=== PATIENT | female | born 1990 | race Caucasian/White ===

== ENCOUNTER 2019-06-22 14:48 | Emergency (ER) | payer OTHER ==
[2019-06-22] MEDS ORDERED: fentaNYL* 50 MCG/ML 2 ML VIAL (100 MCG VIAL) IV SLOW PU ONE ×2 (15:10→17:02)
[2019-06-22] MEDS ORDERED: KETAMINE HCL* 50 MG/ML 10 ML VIAL IV ONE (16:43)
--- NOTE | 2019-06-22 16:59 | ED ---
ED Sedation - Procedural Sedation/Analgesia Sedation Course: RT Present, Emergency Airway Equipment Available, Informed Consent Obtained, Time Out Completed, End-tidal Capnography Utilized Adverse Reactions Experienced by Patient: None Mallampati Classification: Class I ASA Classification: Class I: Normal/Healthy Diagnosis: Elbow dislocation Pre-Procedural Heart: S1 and S2 Pre-Procedural Lungs: Clear Auscultation Comment/Plan of Care: Sedation for elbow dislocation procedure. No contraindications. Provider Procedure Attestation: With My Signature Below, I Attest to have Personally Reviewed and Agree with the Pre-Sedation History and Pre-Service Assessment Update Cleared for Moderate Sedation: Yes Pre-Procedural Diagnosis: Elbow dislocation Post-Procedural Diagnosis: Elbow dislocation Procedure: Given ketamine 50 mgs Estimated Blood Loss: None Specimen(s): None Findings: None Implants/Tubes/Drains Placed: None
--- NOTE | 2019-06-22 17:44 | ED ---
Upper Extremity Pain - HPI Summary HPI Summary: Patient is a 29-year-old otherwise healthy female presenting to the ED with left elbow pain. She states she fell off a horse just prior to arrival and fell directly onto the left arm. She believes she may also have hit her head, however she was wearing a helmet. She is currently denying any headache, head pain, confusion, visual changes, memory loss, lightheadedness. She is endorsing pain mainly over the left elbow with obvious deformity with radiation of pain to the forearm and upper arm. She believes she is unable to move the arm additionally at the shoulder joint. She denies any left sided pain otherwise. Ambulating well. Denies any back pain, chest pain, denies shortness of breath. - History of Current Complaint Chief Complaint: EDExtremityUpper Stated Complaint: POSS LEFT ARM FRACTURE PER PT Time Seen by Provider: 06/22/19 15:02 Hx Obtained From: Patient Onset/Duration: Started Minutes Ago Timing: Constant Severity Initially: Severe Severity Currently: Severe Pain Location: Elbow Character: Aching Aggravating Factor(s): Lifting, Flexion, Extension Alleviating Factor(s): Nothing Associated Signs & Symptoms: Positive: Negative - Allergies/Home Medications Allergies/Adverse Reactions: Allergies Allergy/AdvReac Type Severity Reaction Status Date / Time No Known Allergies Allergy Verified 05/06/16 19:49 Home Medications: Home Medications ALPRAZolam [Xanax] 0.5 mg PO QPM 06/22/19 [History Confirmed 06/22/19] Fluoxetine (Nf) Cap [Fluoxetine HCl] 40 mg PO DAILY 06/22/19 [History Confirmed 06/22/19] QUEtiapine TAB* [Seroquel 25 MG TAB*] 25 mg PO QPM 06/22/19 [History Confirmed 06/22/19] PMH/Surg Hx/FS Hx/Imm Hx Previously Healthy: Yes Endocrine/Hematology History: Denies: Hx Diabetes Psychiatric History: Reports: Hx Bipolar Disorder - Immunization History Hx Pertussis Vaccination: No Immunizations Up to Date: Yes Infectious Disease History: No Infectious Disease History: Denies: Traveled Outside the [place] in Last 30 Days - Family History Known Family History: Positive: Hypertension - Social History Occupation: Employed Full-time Lives: With Family Alcohol Use: Occasionally Hx Substance Use: No Substance Use Type: Reports: None Hx Tobacco Use: Yes Smoking Status (MU): Former Smoker Review of Systems Negative: Fever, Chills, Skin Diaphoresis Negative: Palpitations, Chest Pain Negative: Shortness Of Breath, Cough Positive: Arthralgia - left elbow pain radiating to the upper and lower arm Skin: Negative Negative: Weakness, Paresthesia, Numbness All Other Systems Reviewed And Are Negative: Yes Physical Exam Triage Information Reviewed: Yes Vital Signs On Initial Exam: Initial Vitals Temp Pulse Resp BP Pulse Ox 97.8 F 115 18 140/96 97 06/22/19 14:48 06/22/19 14:48 06/22/19 14:48 06/22/19 14:48 06/22/19 14:48 Vital Signs Reviewed: Yes Appearance: Positive: Well-Appearing, Well-Nourished Skin: Positive: Warm, Skin Color Reflects Adequate Perfusion Head/Face: Positive: Normal Head/Face Inspection Eyes: Positive: EOMI, Conjunctiva Clear Neck: Positive: Supple, No Lymphadenopathy Respiratory/Lung Sounds: Positive: Clear to Auscultation, Breath Sounds Present Cardiovascular: Positive: Pulses are Symmetrical in both Upper and Lower Extremities Musculoskeletal: Positive: Pain @ - left elbow pain Neurological: Positive: Sensory/Motor Intact, Alert, Oriented to Person Place, Time, Speech Normal Psychiatric: Positive: Affect/Mood Appropriate Procedures - Sedation Patient Received Moderate/Deep Sedation with Procedure: Yes Are You The Provider Who Administered The Sedation: [place] of Provider Whom Sedated Patient[facility] [place] [facility] - Vital Signs Vital Signs Temp Pulse Resp BP Pulse Ox 06/22/19 15:22 16 06/22/19 14:48 97.8 F 115 18 140/96 97 - Laboratory Lab Statement: Any lab studies that have been ordered have been reviewed, and results considered in the medical decision making process. Course/Dx - Course Course Of Treatment: Patient is in acute distress on arrival due to pain. She states she is only having pain to her left arm and denies pain otherwise. She is alert and oriented, pain is rated at 10/10. Believe she may have hit her head, but she was wearing a helmet. No neuro symptoms on exam. X-ray shows a dislocation joint effusion. Suspected fractures of the radial head and capitulum. Procedural sedation done by Dr. Marcum. Reduction made by ALFA Lua. Pt tolerated well. Will be dc;d wth fracture and dislocation. Follow up with ortho in 2 days. Sling applied. NV intact. - Diagnoses Differential Diagnosis/HQI/PQRI: Positive: Fracture (Closed) Provider Diagnoses: Elbow dislocation, Radial head fracture Discharge ED - Sign-Out/Discharge Documenting (check all that apply): Patient Departure - Discharge Plan Condition: Stable Disposition: HOME Prescriptions: HydroCODONE/Acetamin 10/325 NF [[place] 10/325 (NF)] 1 tab PO Q6H #8 tab MDD 4 Patient Education Materials: Elbow Dislocation (ED), Procedural Sedation (ED) Referrals: Jackson Judge MD [Medical Doctor] - Mykel Bland MD [Primary Care Provider] - Additional Instructions: Keep the arm in a sling Please follow up with orthopedics Keep the sling on until ortho follow up - Billing Disposition and Condition Condition: STABLE Disposition: Home - Attestation Statements Provider Attestation: I have seen the patient with the ANGIE and agree with the plan and documentation below except as noted: 29-year-old female w elbow fracture dislocation. Reduced successfully. Lizeth Melton MD
[2019-06-22] MEDS ORDERED: oxyCODONE/Acetamin 5/325 MG* TAB PO ONE (18:28)
[2019-06-22 18:57] VITALS: BP 131/80
== END 2019-06-22 18:56 | disposition home or self-care (01) ==
LOC: ED 14:48
DX: S42.202A Unspecified fracture of upper end of left humerus, initial encounter for closed fracture (principal); S53.125A Posterior dislocation of left ulnohumeral joint, initial encounter; M25.422 Effusion, left elbow; V80.010A Animal-rider injured by fall from or being thrown from horse in noncollision accident, initial encounter; Y93.52 Activity, horseback riding; Y92.9 Unspecified place or not applicable; F31.9 Bipolar disorder, unspecified; Z87.891 Personal history of nicotine dependence
CPT/HCPCS: 24600; 96374; 99156; 99283; A9270-GY; J3010

== ENCOUNTER 2019-06-29 11:12 | Day surgery (SDC) | payer OTHER ==
--- NOTE | 2019-06-24 13:33 | HP ---
PREOPERATIVE HISTORY AND PHYSICAL: DATE OF ADMISSION/SURGERY: 06/29/19 [facility] DATE OF OFFICE VISIT/ENCOUNTER: 06/23/19 ATTENDING SURGEON: Elvira Stone MD.* (DICTATED BY ALFA FRANK) PROCEDURE: Open reduction internal fixation, left elbow medial epicondyle; possible lateral ligament repair. HISTORY OF PRESENT ILLNESS: This is a 29-year-old female who injured her left elbow when she was thrown from a horse. 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 She was seen at [facility] Emergency Room. X-rays showed a complete posterior dislocation of the elbow with a medial epicondyle fracture. The dislocation was reduced and she was referred to Dr. Stone for further evaluation and treatment considerations. After review of x-rays and examination of the patient, Dr. Stone is recommending surgical intervention for best outcome. The patient has consented to proceed. PAST MEDICAL HISTORY: 1. Depression/anxiety. 2. Type 2 bipolar disorder. PAST SURGICAL HISTORY: None. CURRENT MEDICATIONS: 1. Alprazolam 1 mg daily. 2. Calcium/magnesium citrate daily. 3. Cod liver oil 2 daily. 4. Divalproex sodium ER 500 mg daily. 5. Drospirenone/ethinyl estradiol 3/0.02 mg. 6. Fluoxetine HCl 20 mg daily. 7. Quetiapine fumarate 25 mg daily. 8. Women's Multivitamin daily. ALLERGIES: No known drug allergies. FAMILY MEDICAL HISTORY: Noncontributory. 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 She is a former smoker. She quit 2 months ago. Prior to that, she smoked 4 to 5 cigarettes a day off and on. She denies recreational drug use. She drinks alcohol on occasion. REVIEW OF SYSTEMS: Negative for general, cephalic, cardiovascular, respiratory , GI, , other musculoskeletal, integumentary, endocrine, neurologic, and hematologic symptoms. Infectious Disease: Negative for MRSA, hepatitis C, HIV. PHYSICAL EXAMINATION GENERAL: A well-developed, well-nourished 29-year-old female, in no acute distress. VITAL SIGNS: Height 5 feet 2 inches, weight 145 pounds. Blood pressure 121/82. HEENT: Normocephalic, atraumatic. Pupils are equal, round, and reactive to light and accommodation. Extraocular movements are intact. Throat is clear. NECK: Supple. No palpable lymph nodes. PULMONARY: Lungs are clear to auscultation bilaterally. No wheezes, rales, or rhonchi. CARDIOVASCULAR: Regular rate and rhythm. S1, S2. No murmurs, rubs, or gallops. No edema. ABDOMEN: Positive bowel sounds. Soft, nontender. NEUROLOGICAL: Alert and oriented x3. Cranial nerves II through XII are intact. Sensation is intact to light touch. MUSCULOSKELETAL: On exam of her left elbow, she has medial and lateral tenderness. There is a lot of swelling. Any motion is painful. She has good motion in her fingers and her wrist. Neurovascular function is intact. Skin is intact. IMAGING STUDIES: X-rays, AP, lateral, and oblique of the left elbow pre and post reduction show a posterior dislocation, which was concentrically reduced, but has a displaced medial epicondyle fracture. IMPRESSION: Left elbow posterior dislocation with medial epicondyle fracture and possible lateral instability as well. PLAN: The patient is scheduled to undergo an open reduction internal fixation of the left medial epicondyle and possible lateral ligament repair with Dr. Stone on 06/29/19. She will return to the office 10 days postop for followup and suture removal. She has a prescription for hydrocodone that was given to her at the emergency room. She will plan on filling that later today, and we will refill that if needed postoperatively. ALFA FRANK [id number]/[facility] #: [id number] CECI
[~2019-06-29 11:12] MED LIST: Acetaminophen TAB* 325 MG ONE; Acetaminophen TAB* 325 MG PO ONE; Buffered Lidocaine 1% SYRIN* 1 ML/SYRINGE INTRADERM ONE; Bupivacaine 0.5% SDV PF* 30ML VIAL ONE; Famotidine IV* 10 MG/ML 2 ML (20 mg) IV ONE; Famotidine IV* 10 MG/ML 2 ML (20 mg) ONE; Gabapentin CAP(*) 300 MG ONE; Gabapentin CAP(*) 300 MG PO ONE; Lactated Ringers 1000 ML Bag* 1,000 ML IV SCH
[2019-06-29] MEDS ORDERED: ceFAZolin 2 GM PREMIX in ORs 2 GM/50 ML BAG ONE (11:21)
[2019-06-29] MEDS ORDERED: fentaNYL* 50 MCG/ML 2 ML VIAL (100 MCG VIAL) ONE ×3 (12:35→14:55)
[2019-06-29] MEDS ORDERED: Midazolam* 1 MG/ML 2 ML VIAL (2 MG) ONE (12:35)
[2019-06-29] MEDS ORDERED: Bupivacaine 0.5% SDV PF* 30ML VIAL ONE (12:50)
[2019-06-29] MEDS ORDERED: Lidocaine 2% PF * 5 ML VIAL ONE (13:11)
[2019-06-29] MEDS ORDERED: Dexamethasone IV* 4 MG/ML 1 ML (4 MG) ONE (13:12)
[2019-06-29] MEDS ORDERED: Ketorolac INJ* 30 MG/ML 1 ML VIAL ONE (13:12)
[2019-06-29] MEDS ORDERED: Propofol* 10 MG/ML 20 ML BTL ONE ×2 (13:12→13:22)
[2019-06-29] MEDS ORDERED: Ondansetron INJ* 2 MG/ML VIAL ONE (13:12)
[2019-06-29] MEDS ORDERED: Ondansetron INJ* 2 MG/ML VIAL IV PRN (13:29)
[2019-06-29] MEDS ORDERED: Levalbuterol 0.63MG/3ML NEB* UNIT OF USE INH PRN (13:29)
[2019-06-29] MEDS ORDERED: diPHENhydraMINE IV* 50 MG/ML 1 ml VIAL (BENADRYL) IV PRN (13:29)
[2019-06-29] MEDS ORDERED: Naloxone* 0.4 MG/ML 1 ML VIAL IV PRN (13:29)
[2019-06-29] MEDS ORDERED: DiMENhydriNATE IV* 50 MG/ML VIAL IV PUSH PRN (13:29)
[2019-06-29] MEDS ORDERED: Scopolamine 1.5 mg* PATCH TRANSDERM PRN (13:29)
[2019-06-29] MEDS ORDERED: HYDROcodone/ACETAMIN 5-325 MG* 1 TAB PO PRN ×2 (13:29)
[2019-06-29] MEDS ORDERED: HYDROcodone/ACETAMIN 5-325 MG* 1 TAB ONE (14:47)
[2019-06-29] MEDS: fentaNYL* 50 MCG/ML 2 ML VIAL (100 MCG VIAL) IV PRN ×2 (14:57→15:06)
[2019-06-29 16:04] VITALS: BP 138/73
--- NOTE | 2019-06-29 23:27 | OP ---
DATE OF OPERATION: 06/29/19 - [facility] DATE OF : [birth year] SURGEON: Elvira Stone MD PROFESSIONAL SHOPPER: ALFA Medina ANESTHESIA: General. PRE-OP DIAGNOSIS: Medial epicondyle fracture of the left elbow, status post dislocation. POST-OP DIAGNOSIS: Medial epicondyle fracture of the left elbow, status post dislocation. OPERATIVE PROCEDURE: Open reduction and internal fixation of the left medial epicondyle. ESTIMATED BLOOD LOSS: Zero. TOURNIQUET TIME: About 45 minutes. INDICATIONS FOR PROCEDURE: Miguelina is a 29-year-old female who fell off a horse and suffered dislocation of her left elbow. She has a fracture of her medial epicondyle, which is markedly displaced. The elbow joint was reduced and has been stable, but she presents now for ORIF of the medial epicondyle. DESCRIPTION OF PROCEDURE: The patient was brought to the operating room, was given a general anesthetic and placed in the supine position on the operating table with a tourniquet around her left upper arm. The skin of her left upper extremity was prepped and draped in the usual sterile fashion. The upper extremity was exsanguinated and the tourniquet elevated to 250 mmHg. A medial curvilinear incision was made centered over the medial epicondyle. The fracture fragment was found significantly displaced from the medial aspect of the humerus. The hematoma was removed and the elbow joint was irrigated with saline. It was placed through a range of motion and was very stable in flexion , extension, pronation, and supination. The ulnar nerve was carefully dissected out away from the fracture fragment, but not out of its bed and a vessel loop was placed around it to protect it during the procedure. The instructor adjunct surgical technician, Tasha Powell, was essential for safe completion of this case as she was used to retract the ulnar nerve away from the fracture site. The fracture fragment was secured to the fracture bed with two 3.0 cannulated screws. Guidewires were placed first and the position of these was checked on the C-arm in the AP and lateral views. We then measured for a 40 mm screw, which was placed over the guidewire after the small fragment was predrilled with the appropriate drill. The screws were used with washers. The guidewires were removed and then the position of the screws was checked on the C -arm in the AP and lateral views and found to be satisfactory. The fracture fragment was well reduced and with range of motion of the elbow, there was no gapping of the fracture site. The wound was copiously irrigated with saline. The vessel loop was removed from around the ulnar nerve and the nerve was again dissected away to make sure that it was not trapped in the fracture site, but left in its bed to protect it from the screw heads. The subcutaneous tissue was closed with 3-0 Vicryl and the skin with skin jose. The wound was dressed with Xeroform, 4x4, Webril, and a posterior splint. The patient tolerated the procedure well and was brought to the recovery room in good condition. [id number]/[facility] #: [id number] [facility]
[2019-07-02] MEDS ORDERED: Scopolamine PATCH Remove* 1 NOTE MISC PATCH OFF ONE (13:30)
== END 2019-06-29 16:00 | disposition home or self-care (01) ==
LOC: OREAST 11:12
PROVIDERS: ATTEND Orthopaedic Surgery
DX: S42.442A Displaced fracture (avulsion) of medial epicondyle of left humerus, initial encounter for closed fracture (principal); F41.8 Other specified anxiety disorders; F31.81 Bipolar II disorder; V80.010A Animal-rider injured by fall from or being thrown from horse in noncollision accident, initial encounter; Y93.52 Activity, horseback riding; Y92.9 Unspecified place or not applicable; F17.211 Nicotine dependence, cigarettes, in remission; F41.9 Anxiety disorder, unspecified
CPT/HCPCS: 76000; 81025; A9270-GY; C1713; C1769; C1776; J0690; J1100; J1885; J2250; J2405; J2704; J3010; J3490